=== PATIENT | female | born 1985 | race Caucasian/White ===

== ENCOUNTER 2017-04-20 14:32 | Emergency (ER) | payer OTHER ==
[~2017-04-20] VITALS: Ht 170.2 cm; Wt 137.0 kg
[~2017-04-20 14:32] MED LIST: CHLO1CAP56 PO; DEXL60CA2 PO; OMEP20CA9 PO
[2017-04-20 14:51] VITALS: Ht 170.2 cm; Wt 137.0 kg
[2017-04-20] MEDS ORDERED: ONDANSETRON 4 MG INJ IV STA (17:45)
[2017-04-20] MEDS ORDERED: SOD CHLORIDE 0.9% 1,000 ML IV STA (17:45)
[2017-04-20] MEDS ORDERED: FAMOTIDINE 20 MG INJ IV STA (17:45)
[2017-04-20] MEDS ORDERED: LIDOCAINE/MYLANTA 40 ML BTL PO STA (17:45)
[2017-04-20 18:51] LABS: BASOPHILS % 0.2 % (0.0-2.0); HEMATOCRIT 41.6 % (37.0-47.0); HEMOGLOBIN 13.6 g/dl (12.0-16.0); LYMPHOCYTES # 0.6 10^3/ul (0.8-2.9); LYMPHOCYTES % 6.5 % (15.0-51.0); MEAN CORPUSCULAR HEMOGLOBIN 29.2 pg (29.0-33.0); MEAN CORPUSCULAR HGB CONC 32.7 g/dl (32.0-37.0); MEAN CORPUSCULAR VOLUME 89.3 fl (82.0-101.0); MEAN PLATELET VOLUME 10.4 fl (7.4-10.4); MONOCYTE # 0.3 10^3/ul (0.3-0.9); MONOCYTES % 2.9 % (0.0-11.0); NEUTROPHIL # 8.5 10^3/ul (1.6-7.5); NEUTROPHILS % 90.1 % (39.0-77.0); PLATELET COUNT 263 10^3/UL (140-415); RED BLOOD COUNT 4.66 10^6/ul (4.20-5.40); RED CELL DISTRIBUTION WIDTH 13.5 % (11.5-14.5); WHITE BLOOD COUNT 9.4 10^3/ul (4.8-10.8)
[2017-04-20 19:09] LABS: ALBUMIN 3.7 g/dl (3.3-4.9); ALBUMIN/GLOBULIN RATIO 1.08; BILIRUBIN,INDIRECT 0.7 mg/dl (0-1.1); BILIRUBIN,TOTAL 0.7 mg/dl (0.2-1.3); CALCIUM 8.7 mg/dl (8.4-10.2); CREATININE 0.71 mg/dl (0.44-1.00); POTASSIUM 3.7 mmol/L (3.5-5.1); TOTAL PROTEIN 7.1 g/dl (6.1-8.1)
[2017-04-20] MEDS ORDERED: ONDA4TAB14 PO (19:37)
[2017-04-20] MEDS ORDERED: FAMO-96 PO (19:37)
[2017-04-20 20:50] VITALS: BP 123/67; PULSE 97; RESP 18; TEMP 98.7
--- NOTE | 2017-04-20 23:30 | ERD ---
ER Documentation Chief Complaint Chief Complaint ap w/radiating RUQ PAIN X1 DAY, +N/V HPI 32-year-old female with no significant past medical history presenting with complaints of nausea and vomiting for 1 day. She states she woke up around 5 AM this morning with abdominal cramping. She had an episode of loose stools. After that she started having nausea with multiple episodes of nonbloody and nonbilious vomiting. She now complains of some burning in her chest and in her epigastric area. She has mild right upper quadrant pain, but this started after all of her vomiting. No associated fever or chills. No dysuria. No sick contacts. ROS All systems reviewed and are negative except as per history of present illness. Medications Home Meds Active Scripts Famotidine* (Pepcid*) 20 Mg Tablet, 20 MG PO BID for 14 Days, TAB Prov:RHIANNON VALENZUELA MD 04/20/17 Ondansetron (Ondansetron Odt) 4 Mg Tab.rapdis, 4 MG PO Q6H Y for NAUSEA AND/OR VOMITING, #10 TAB Prov:RHIANNON VALENZUELA MD 04/20/17 Reported Medications Omeprazole* (Prilosec*) 20 Mg Capsule., 20 MG PO DAILY, CAP 07/07/14 Chlordiazepoxide/Clidinium* (Librax*) 1 Cap Cap, 1 CAP PO TID, CAP 07/07/14 Dexlansoprazole (Dexilant) 60 Mg Cap., 60 MG PO DAILY, CAP 07/07/14 Allergies Allergies: Coded Allergies: morphine (Unverified Allergy, Intermediate, 04/20/17) PMhx/Soc History of Surgery: Yes (sinus surgery ) Anesthesia Reaction: No Hx Neurological Disorder: No Hx Respiratory Disorders: No Hx Cardiac Disorders: No Hx Psychiatric Problems: No Hx Miscellaneous Medical Probl: Yes (Gallstones) Hx Alcohol Use: No Hx Substance Use: No Hx Tobacco Use: No FmHx Family History: No diabetes Physical Exam Vitals Vital Signs Date Time Temp Pulse Resp B/P Pulse Ox O2 Delivery O2 Flow Rate FiO2 04/20/17 20:50 98.7 97 18 123/67 100 Room Air 04/20/17 18:38 98.6 100 17 100 Room Air 04/20/17 17:29 98.5 113 18 163/103 97 Room Air 04/20/17 14:51 100.7 118 20 168/101 97 Physical Exam Const: Well-appearing, nontoxic, no apparent distress, obese Head: Atraumatic Eyes: Normal Conjunctiva, no scleral icterus ENT: Dry mucous membranes. Posterior oropharynx normal. Neck: Full range of motion..~ No meningismus. Resp: Clear to auscultation bilaterally Cardio: Regular rate and rhythm, no murmurs Abd: Soft, non tender, non distended. Negative Sawyer sign. No McBurney's point tenderness. No rebound or guarding. Normal bowel sounds Skin: No petechiae or rashes Back: No midline or flank tenderness Ext: No cyanosis, or edema Neur: Awake and alert Psych: Normal Mood and Affect Result Diagram: 04/20/17182904/20/171829 Results 24 hrs Laboratory Tests Test 04/20/17 18:30 White Blood Count 9.410^3/ul Red Blood Count 4.6610^6/ul Hemoglobin 13.6g/dl Hematocrit 41.6% Mean Corpuscular Volume 89.3fl Mean Corpuscular Hemoglobin 29.2pg Mean Corpuscular Hemoglobin Concent 32.7g/dl Red Cell Distribution Width 13.5% Platelet Count 78193^3/UL Mean Platelet Volume 10.4fl Neutrophils % 90.1% Lymphocytes % 6.5% Monocytes % 2.9% Eosinophils % 0.0% Basophils % 0.2% Nucleated Red Blood Cells % 0.0/100WBC Neutrophils # 8.510^3/ul Lymphocytes # 0.610^3/ul Monocytes # 0.310^3/ul Eosinophils # 0.010^3/ul Basophils # 0.010^3/ul Nucleated Red Blood Cells # 0.010^3/ul Sodium Level 141mmol/L Potassium Level 3.7mmol/L Chloride Level 108mmol/L Carbon Dioxide Level 24mmol/L Anion Gap 13 Blood Urea Nitrogen 12mg/dl Creatinine 0.71mg/dl Glucose Level 105mg/dl Calcium Level 8.7mg/dl Total Bilirubin 0.7mg/dl Direct Bilirubin 0.00mg/dl Indirect Bilirubin 0.7mg/dl Aspartate Amino Transf (AST/SGOT) 23IU/L Alanine Aminotransferase (ALT/SGPT) 34IU/L Alkaline Phosphatase 86IU/L Total Protein 7.1g/dl Albumin 3.7g/dl Globulin 3.40g/dl Albumin/Globulin Ratio 1.08 Lipase 44U/L Current Medications Medications (Trade) Dose Ordered Sig/Shannon Route PRN Reason Start Time Stop Time Status Last Admin Dose Admin Sodium Chloride (NS) 1,000 ml @ 1,000 mls/hr Q1H STAT IV 04/20/17 17:45 04/20/17 18:44 DC 04/20/17 18:34 Ondansetron HCl (Zofran Inj) 4 mg ONCE STAT IV 04/20/17 17:45 04/20/17 17:47 DC 04/20/17 18:35 Famotidine (Pepcid Iv) 20 mg ONCE STAT IV 04/20/17 17:45 04/20/17 17:47 DC 04/20/17 18:35 Miscellaneous Medication (Gi Cocktail (2)) 40 ml ONCE STAT PO 04/20/17 17:45 04/20/17 17:47 DC 04/20/17 18:35 Procedures/MDM EMERGENT LABS AND DIAGNOSTIC STUDIES: Lab Results above were reviewed and interpreted by me. CBC and CMP unremarkable test negative Initial Nursing notes reviewed. Previous Medical Records requested via the Electronic Health Record. EMERGENCY DEPARTMENT COURSE / MEDICAL DECISION MAKING: Patient is presenting with intermittent abdominal cramps associated with vomiting and diarrhea. Vitals on arrival were notable for a low-grade fever and tachycardia. However her temperature was rechecked and was within normal limits without any interventions. IV was placed. Labs are sent. IV fluids, antiemetics, and Pepcid were given. Labs did not show any significant abnormalities. The differential is broad I have a low suspicion for acute surgical abdomen. Patient's presentation is most consistent with a viral gastroenteritis. Upon reevaluation, the patient felt much better and was tolerating fluids by mouth without any further episodes of vomiting. Repeat abdominal exam was benign. I believe the patient is stable for discharge at this time. Selfridge diet was recommended. Prescription for Zofran and Pepcid were given. Return precautions were discussed. Patient's blood pressure was elevated (>120/80) but appears stable without evidence of hypertensive emergency or urgency. The patient was counseled about the risks of hypertension and urged to pursue outpatient monitoring and therapy within a week with their primary care physician. Departure Diagnosis: Primary Impression: Abdominal cramps Additional Impression: Nausea, vomiting and diarrhea Condition: Stable Patient Instructions: Gastroenteritis, Viral (6Y-Adult) Referrals: NO PRIMARY,CARE PHYSICIAN (PCP) Additional Instructions: You have worsening abdominal pain over the next 8-12 hours, return to the ED for reevaluation. RHIANNON VALENZUELA MD Apr 20, 2017 23:30
== END 2017-04-20 20:55 | disposition home or self-care (01) ==
LOC: FTE 14:32
DX: R10.11 Right upper quadrant pain (principal); R11.2 Nausea with vomiting, unspecified; R19.7 Diarrhea, unspecified
CPT/HCPCS: 36415; 80053; 83690; 85025; 96374; 96375; J2405; J7030; Z7502; Z7610

== ENCOUNTER 2018-06-06 06:02 | Emergency (ER) | payer OTHER ==
[~2018-06-06] VITALS: Ht 170.2 cm; Wt 141.5 kg
[~2018-06-06 06:02] MED LIST changes: +FAMO-96 PO; +ONDA4TAB14 PO
[2018-06-06 06:04] VITALS: BP 168/98; PULSE 102; RESP 20; Ht 170.2 cm; Wt 141.5 kg
[2018-06-06] MEDS ORDERED: ACETAMINOPHEN 325 MG TAB PO ONE (07:00)
[2018-06-06] MEDS ORDERED: AMOX1TAB10 PO (07:49)
[2018-06-06] MEDS ORDERED: FLUT9.9S NASAL (07:49)
[2018-06-06] MEDS ORDERED: ACET500C5 PO (07:50)
--- NOTE | 2018-06-06 09:22 | ERD ---
ER Documentation Chief Complaint Chief Complaint cough/headache/sore throat/sinus pressure x 2 months HPI 33-year-old female patient with a past medical history of hypertension presents to the ED complaining of a dry cough, sinus pressure, sore throat, upper back pain, headache that started intermittently for the last 2 months. Reports that her symptoms got better after taking Zithromax, but symptoms returned a few days ago. States that she also has been being allergies, since she has been exposed to her. States that she also took Tamiflu, few weeks ago as well as using a Louise pot, especially feels like her nose is clogged. States that her lower ribs are painful. Denies any chest pain, shortness of breath, wheezing, abdominal pain, nausea, vomiting, diarrhea, neck stiffness. Denies any sick contacts. ROS All systems reviewed and are negative except as per history of present illness. Medications Home Meds Active Scripts Acetaminophen* (Tylophen*) 500 Mg Capsule, 1 CAP PO Q6H PRN for PAIN AND OR ELEVATED TEMP, #20 CAP Prov:KAT GOOD PA-C 06/06/18 Amoxicillin/Potassium Clav (Amox-Clav 875-125 mg Tablet) 875-125 mg Tab, 1 TAB PO BID for 7 Days, #14 TAB Prov:KAT GOOD PA-C 06/06/18 Fluticasone Propionate (Flonase Allergy Relief) 9.9 Ml [place].susp, 1 SPRAY NASAL DAILY, #1 BOTTLE TO EACH NOSTRIL Prov:KAT GOOD PA-C 06/06/18 Famotidine* (Pepcid*) 20 Mg Tablet, 20 MG PO BID for 14 Days, TAB Prov:RHIANNON VALENZUELA MD 04/20/17 Ondansetron (Ondansetron Odt) 4 Mg Tab.rapdis, 4 MG PO Q6H PRN for NAUSEA AND/OR VOMITING, #10 TAB Prov:RHIANNON VALENZUELA MD 04/20/17 Reported Medications Omeprazole* (Prilosec*) 20 Mg Capsule.dr, 20 MG PO DAILY, CAP 07/07/14 Chlordiazepoxide/Clidinium* (Librax*) 1 Cap Cap, 1 CAP PO TID, CAP 07/07/14 Dexlansoprazole (Dexilant) 60 Mg Cap.dr.mp, 60 MG PO DAILY, CAP 07/07/14 Allergies Allergies: Coded Allergies: morphine (Unverified Allergy, Intermediate, 06/06/18) azithromycin (Verified Allergy, Unknown, 06/06/18) PMhx/Soc History of Surgery: Yes (sinus surgery ) Anesthesia Reaction: No Hx Neurological Disorder: No Hx Respiratory Disorders: No Hx Cardiac Disorders: No Hx Psychiatric Problems: No Hx Miscellaneous Medical Probl: Yes (Gallstones,preDM) Hx Alcohol Use: No Hx Substance Use: No Hx Tobacco Use: No Smoking Status: Never smoker FmHx Family History: No diabetes, No coronary disease Physical Exam Vitals Vital Signs Date Temp Pulse Resp B/P (MAP) Pulse Ox O2 O2 Flow FiO2 Time Delivery Rate 06/06/18 98.0 102 20 168/98 98 06:04 (121) Physical Exam Const: Sgi-wiv-buouzurzp, well-nourished. In no acute distress. Head: Atraumatic, normocephalic. Tenderness palpation of the bilateral maxillary sinuses. Eyes: Normal Conjunctiva without injection. No purulent discharge. PERRLA. EOMI ENT: Normal external ear. Ear canal without erythema. Tympanic membrane pearly khan without effusion or bulging. Nasal canal clear with normal turbinates. Moist oropharynx without tonsillar exudates. Non-erythematous pharynx. Uvula midline. No drooling. No trismus. Neck: No cervical midline tenderness. Full range of motion. No meningismus. No cervical lymphadenopathy. No JVD. Resp: Clear to auscultation bilaterally. No wheezing, rhonchi, rales, or crackles. No accessory muscle use. No retractions. Cardio: Regular rate and rhythm. No murmurs, rubs or gallops. Chest: Tenderness palpation of the bilateral ribs. Abd: Soft, non tender, non distended. Normal bowel sounds. No palpable masses. No rebound tenderness. No guarding. Negative McBurney's Point. Negative Sawyer's Sign. Skin: Normal skin turgor. No petechiae or rashes Back: No midline tenderness. No CVA tenderness. Ext: No cyanosis, or edema. Distal pulses intact bilaterally. Neur: Awake and alert. Normal gait. Normal coordination. Cranial Nerves II- VII intact. Normal finger to nose. Muscle strength 5/5. Sensation intact. Psych: Normal Mood and Affect Results 24 hrs Laboratory Tests Test 06/06/18 07:07 06/06/18 07:09 Bedside Urine pH (LAB) 5.5 Bedside Urine Protein (LAB) Negative Bedside Urine Glucose (UA) Negative Bedside Urine Ketones (LAB) Negative Bedside Urine Blood Trace-lysed Bedside Urine Nitrite (LAB) Negative Bedside Urine Leukocyte Esterase (L Trace POC Beta HCG, Qualitative NEGATIVE Current Medications Medications Dose Sig/Shannon Start Time Status Last (Trade) Ordered Route PRN Stop Time Admin Dose Reason Admin 650 mg ONCE ONCE 06/06/18 DC 06/06/18 Acetaminophen PO 07:00 06:57 (Tylenol 06/06/18 Tab) 07:01 Procedures/MDM 33-year-old female patient with a past medical history of hypertension presents the ED complaining of cough, headache, sore throat, sinus pain, upper back pain. Patient is afebrile and nontoxic-appearing. Patient's blood pressure was 168/98. Blood Pressure Assessment: Patient's blood pressure was elevated ( >120/80) but appears stable without evidence of hypertension emergency or urgency. The patient was counseled about the risks of hypertension and urged to pursue outpatient monitoring and therapy within a week with their primary care physician. Negative urine . Urine dip showed trace leukocyte esterase however patient is not complaining of any dysuria. PROCEDURE: XR Chest. CLINICAL INDICATION: cough rib pain TECHNIQUE: Single frontal view of the chest was obtained COMPARISON: None FINDINGS: The heart and mediastinum are within normal limits. The lungs are clear. There is no pleural effusion or pneumothorax. The bones and soft tissue show no acute change. IMPRESSION: No definite abnormalities are identified. This patient presents to the ED with symptoms consistent with a viral syndrome versus sinusitis. Patient's physical exam include lungs which were clear to auscultation and a normal pulse oximetry. There is a low suspicion for pneumonia, pneumothorax, mononucleosis, pulmonary embolism, epiglottitis, otitis media, otitis externa, viral/strep pharyngitis, myocarditis, pericarditis, endocarditis, peritonsillar abscess, mastoiditis, retropharyngeal abscess, meningitis, sepsis, acute abdomen or other emergent conditions. Fluids, rest, and symptomatic treatment are recommended for the management of patient's symptoms. Patient is ambulating here in the ED without difficulty. Denies saddle anesthesia, numbness or tingling, urine or bowel incontinence, weakness. Low suspicion for atypical [place], cauda equina syndrome, cardiac arrhythmias, cord compression, nephrolithiasis, aortic aneurysm, aortic dissection, epidural abscess, spinal hematoma, malignancy, pyelonephritis, or other emergent conditions. Diagnosis: Cough, Sinus pain, Nasal congestion Discharge medications: Flonase, Tylenol, Augmentin Follow up with primary care physician in 1-2 days. Instructed patient to return to the ED sooner for any worsening symptoms. Patient's questions were answered. Patient is hemodynamically stable. Patient understood and agreed with discharge plan. Patient discharged stable. Disclaimer: Inadvertent spelling and grammatical errors are likely due to EHR/dictation software use and do not reflect on the overall quality of patient care. Also, please note that the electronic time recorded on this note does not necessarily reflect the actual time of the patient encounter. Departure Diagnosis: Primary Impression: Cough Additional Impressions: Sinus pain Nasal congestion Condition: Stable Patient Instructions: Sinusitis, Abx Tx, Viral Syndrome (Adult) Referrals: [facility] YOU HAVE RECEIVED A MEDICAL SCREENING EXAM AND THE RESULTS INDICATE THAT YOU DO NOT HAVE A CONDITION THAT REQUIRES URGENT TREATMENT IN THE EMERGENCY DEPARTMENT. FURTHER EVALUATION AND TREATMENT OF YOUR CONDITION CAN WAIT UNTIL YOU ARE SEEN IN YOUR DOCTORS OFFICE WITHIN THE NEXT 1-2 DAYS. IT IS YOUR RESPONSIBILITY TO MAKE AN APPOINTMENT FOR FOLOW-UP CARE. IF YOU HAVE A PRIMARY DOCTOR --you should call your primary doctor and schedule an appointment IF YOU DO NOT HAVE A PRIMARY DOCTOR YOU CAN CALL OUR PHYSICIAN REFERRAL HOTLINE AT IF YOU CAN NOT AFFORD TO SEE A PHYSICIAN YOU CAN CHOSE FROM THE FOLLOWING [facility] [address] [facility] [address] [facility] [facility] [address] [facility] [address] [facility] [address] [facility]. [facility]. [address] [facility]. [facility] YOU HAVE RECEIVED A MEDICAL SCREENING EXAM AND THE RESULTS INDICATE THAT YOU DO NOT HAVE A CONDITION THAT REQUIRES URGENT TREATMENT IN THE EMERGENCY DEPARTMENT. FURTHER EVALUATION AND TREATMENT OF YOUR CONDITION CAN WAIT UNTIL YOU ARE SEEN IN YOUR DOCTORS OFFICE WITHIN THE NEXT 1-2 DAYS. IT IS YOUR RESPONSIBILITY TO MAKE AN APPOINTMENT FOR FOLOW-UP CARE. IF YOU HAVE A PRIMARY DOCTOR --you should call your primary doctor and schedule and appointment IF YOU DO NOT HAVE A PRIMARY DOCTOR YOU CAN CALL OUR PHYSICIAN REFERRAL HOTLINE AT . IF YOU CAN NOT AFFORD TO SEE A PHYSICIAN YOU CAN CHOSE FROM THE FOLLOWING [facility] INSTITUTIONS: [facility] [address] [place] [address] [facility] [address] [place] [place] [id number] [place] [address] [address] [place] [address] [facility] URGENT CARE/SPECIALTIES Additional Instructions: Call your primary care doctor TOMORROW for an appointment during the next 2-3 days for a referral to see an ears nose throat specialist.See the doctor sooner or return here if your condition worsens before your appointment time. KAT GOOD PA-C Jun 06, 2018 09:22
== END 2018-06-06 07:57 | disposition home or self-care (01) ==
LOC: FTE 06:02
DX: R05 Cough (principal); J34.89 Other specified disorders of nose and nasal sinuses; R09.81 Nasal congestion
CPT/HCPCS: 71045; 81003; 81025; Z7502; Z7610

== ENCOUNTER 2018-07-24 07:27 | Emergency (ER) | payer OTHER ==
[~2018-07-24] VITALS: Ht 170.2 cm; Wt 137.3 kg
[~2018-07-24 07:27] MED LIST changes: +ACET500C5 PO; +AMOX1TAB10 PO; +FLUT9.9S NASAL
[2018-07-24 07:32] VITALS: BP 161/89; PULSE 81; RESP 18; Ht 170.2 cm; Wt 137.3 kg
[2018-07-24] MEDS ORDERED: ALBUTEROL 0.083% (NEB) 2.5 MG/3 ML AMP HHN STA (08:05)
[2018-07-24] MEDS ORDERED: predniSONE 20 MG TAB PO ONE (08:30)
[2018-07-24] MEDS ORDERED: PRED20TA PO (08:39)
[2018-07-24] MEDS ORDERED: ALBU18HF INHALATION (08:40)
[2018-07-24] MEDS ORDERED: AZIT250T PO (08:41)
--- NOTE | 2018-07-24 08:45 | ERD ---
ER Documentation Chief Complaint Chief Complaint cough , chestc ongestion x 8 days HPI 33-year-old female presents with cough, wheezing for last 3 days. She denies previous history of asthma. She has previous history of wheezing. Her cough is occasionally productive. She had fever for the first few days but no current fever. She denies chest pain, vomiting, abdominal pain. ROS All systems reviewed and are negative except as per history of present illness. Medications Home Meds Active Scripts Azithromycin* (Zithromax*) 250 Mg Tablet, 250 MG PO .ZPACK DIRECTED, #6 TAB TAKE 500 MG (2 TABS) THE FIRST DAY THEN 250 MG (1 TAB) DAYS 2-5 Prov:BHARTI SANCHEZ MD 07/24/18 Albuterol Sulfate* (Ventolin HFA*) 18 Gm Hfa.aer.ad, 2 PUFF INHALATION Q4H, #1 INHALER Prov:BHARTI SANCHEZ MD 07/24/18 Prednisone* (Prednisone*) 20 Mg Tab, 40 MG PO DAILY for 4 Days, TAB Start July 25, 2018 Prov:BHARTI SANCHEZ MD 07/24/18 Acetaminophen* (Tylophen*) 500 Mg Capsule, 1 CAP PO Q6H PRN for PAIN AND OR ELEVATED TEMP, #20 CAP Prov:KAT GOOD PA-C 06/06/18 Amoxicillin/Potassium Clav (Amox-Clav 875-125 mg Tablet) 875-125 mg Tab, 1 TAB PO BID for 7 Days, #14 TAB Prov:KAT GOOD PA-C 06/06/18 Fluticasone Propionate (Flonase Allergy Relief) 9.9 Ml [place].susp, 1 SPRAY NASAL DAILY, #1 BOTTLE TO EACH NOSTRIL Prov:KAT GOOD PA-C 06/06/18 Famotidine* (Pepcid*) 20 Mg Tablet, 20 MG PO BID for 14 Days, TAB Prov:RHIANNON VALENZUELA MD 04/20/17 Ondansetron (Ondansetron Odt) 4 Mg Tab.rapdis, 4 MG PO Q6H PRN for NAUSEA AND/OR VOMITING, #10 TAB Prov:RHIANNON VALENZUELA MD 04/20/17 Reported Medications Omeprazole* (Prilosec*) 20 Mg Capsule.dr, 20 MG PO DAILY, CAP 07/07/14 Chlordiazepoxide/Clidinium* (Librax*) 1 Cap Cap, 1 CAP PO TID, CAP 07/07/14 Dexlansoprazole (Dexilant) 60 Mg Cap.dr.jailene, 60 MG PO DAILY, CAP 07/07/14 Allergies Allergies: Coded Allergies: morphine (Unverified Allergy, Intermediate, 07/24/18) PMhx/Soc History of Surgery: Yes (sinus surgery ) Anesthesia Reaction: No Hx Neurological Disorder: No Hx Respiratory Disorders: No Hx Cardiac Disorders: No Hx Psychiatric Problems: No Hx Miscellaneous Medical Probl: Yes (Gallstones,preDM) Hx Alcohol Use: No Hx Substance Use: No Hx Tobacco Use: No Smoking Status: Never smoker FmHx Family History: No diabetes, No coronary disease, No other Physical Exam Vitals Vital Signs Date Temp Pulse Resp B/P (MAP) Pulse Ox O2 O2 Flow FiO2 Time Delivery Rate 07/24/18 85 20 97 21 08:11 07/24/18 97.6 81 18 161/89 97 07:32 (113) Physical Exam Const: No acute distress Head: Atraumatic Eyes: Normal Conjunctiva ENT: Normal External Ears, Nose and Mouth. TMs normal. Nasal congestion. Postnasal drip. Neck: Full range of motion. No meningismus. Resp: Clear to auscultation bilaterally. Diffuse coarse breath sounds and wheezing without rales or retractions appreciated. Cardio: Regular rate and rhythm, no murmurs Abd: Soft, non tender, non distended. Normal bowel sounds Skin: No petechiae or rashes Back: No midline or flank tenderness Ext: No cyanosis, or edema Neur: Awake and alert Psych: Normal Mood and Affect Results 24 hrs Current Medications Medications Dose Sig/Shannon Start Time Status Last (Trade) Ordered Route PRN Stop Time Admin Dose Reason Admin Prednisone 60 mg ONCE ONCE 07/24/18 DC 07/24/18 (Prednisone) PO 08:30 08:15 07/24/18 08:31 Albuterol 5 mg ONCE STAT 07/24/18 DC 07/24/18 (Proventil HHN 08:05 08:11 0.083% (Neb)) 07/24/18 08:07 Procedures/MDM Patient was given albuterol treatment. Patient clear lungs on serial exam without rales, wheezing or retractions. Patient was given prednisone 60 mg by mouth. Patient presents with approximately 8-day history of URI symptoms, productive cough. She has signs of wheezing which resolved with albuterol treat ment. She has no evidence of hypoxemia, respiratory stress, signs of pneumonia. We will treat empirically with Zithromax, prednisone, Ventolin, primary care follow-up and return precautions. The patient was stable with no new complaints during the ER course. Clinically, there is no current evidence to suggest meningitis, sepsis, acute abdomen, pneumonia, stroke, acute coronary syndrome, pulmonary embolism, aortic dissection or any other emergent condition appearing to require further evaluation or hospitalization. Patient counseled regarding my diagnostic impression and care plan. Prior to discharge all questions answered. Pt agrees with treatment plan and understands strict return precautions. Pt is instructed to follow up with primary care provider within 24- 48 hours. Precautionary instructions provided including instructions to return to the ER if not improving or for any worsening or changing symptoms or concerns. Departure Diagnosis: Primary Impression: Wheezing Additional Impression: Upper respiratory infection URI type: unspecified URI Qualified Codes: J06.9 - Acute upper respiratory infection, unspecified Condition: Stable Patient Instructions: Bronchitis With Wheezing (Adult) Additional Instructions: Recheck for new or worsening symptoms with primary care doctor. BHARTI SANCHEZ MD Jul 24, 2018 08:45
[2018-07-24] MEDS ORDERED: DIPHENHYDRAMINE 50 MG CAP PO ONE (09:00)
== END 2018-07-24 08:53 | disposition home or self-care (01) ==
LOC: FTE 07:27
DX: J06.9 Acute upper respiratory infection, unspecified (principal); R06.2 Wheezing
CPT/HCPCS: 94664; J7512; Z7502; Z7610